=== PATIENT | female | born 1960 | race Caucasian/White ===

== ENCOUNTER 2022-09-26 13:44 | Outpatient (OUT) | payer BC, SELFPAY ==
--- NOTE | 2022-09-26 14:16 | P.CN_ITS ---
Consult Note: HPI Data of Consult Patient: known to practice within the last 3 years Consult date: 09/26/22 Requesting Physician: Gage Ellis MD Primary Care Provider: TIA LOCKWOOD Consult Narrative Reason for consult: Low back pain Narrative: this is a pleasant 62-year-old female who presents for system. She notes persistence of axial low back pain is worsened with standing and ambulation. Her lumbar MRI was reviewed, which is significant for multiple levels of foraminal stenosis, worse at L5-S1, as well as multiple levels of facet arthropathy. She engages in provider directed home exercises, which provided minimal relief at this point. She previously was utilizing Percocet, but has self weaned. She utilizes Tylenol and NSAIDs, which provided relief. She otherwise denies average medication side effects as well as a bar bladder control. cc:: CC: Gage Ellis MD Review of Systems ROS Status of ROS 10 or more systems reviewed and unremarkable except as noted in history and below Exam Constitutional Common normals: no apparent distress, oriented x3 and healthy appearing Respiratory Common normals: normal respiratory effort Effort & inspection: able to speak in complete sentences Back & Pelvis Other: tenderness to palpation throughout the lumbar spine and paraspinal musculature. Pain is elicited with flexion, extension, and lateral rotation of the lumbar spine. Facet loading maneuvers are positive bilaterally. Coordination remains intact. Gait remains nonantalgic. Extremity Common normals: normal to inspection Neuro Common normals: oriented x3, CN's II-XII intact bilaterally and no focal motor deficits Psych Common normals: mental status grossly normal and cooperative Assessment and Plan Assessment and Plan (1) Lumbar stenosis with neurogenic claudication: (2) Lumbar spondylosis: Plan this is a pleasant 62-year-old female who presents for assessment. She has failed physical and medical modalities, as listed above. Her imaging was reviewed, as noted above. Given her symptomatology and imaging findings, it is prudent to attempt diagnostic bilateral L3, L4, L5 medial branch blocks with the intention of proceeding to radiofrequency ablation. She is in agreement with this plan and will call to schedule when she is ready. Medications were review ed, and no changes were made at this time. She has self weaned from the Percocet. She will follow up after the procedure is complete.
== END 2022-09-26 13:45 ==
LOC: PM 11-03 13:45
PROVIDERS: PCP Family Medicine; Visit Provider Anesthesiology
DX: M47.816 Spondylosis without myelopathy or radiculopathy, lumbar region (principal); M48.062 Spinal stenosis, lumbar region with neurogenic claudication
CPT/HCPCS: G0463

== ENCOUNTER 2023-12-28 11:13 | Outpatient (OUT) | payer BC, SELFPAY ==
[2023-12-28 11:33] LABS: Basophils Percent Auto 0.3 % (0.2-2.0); Eosinophils Absolute Auto 0.1 10^3/uL (0.0-0.7); Eosinophils Percent Auto 0.8 % (0.9-7.0); Hematocrit 38.7 % (36.0-48.0); Hemoglobin 12.8 g/dL (12.0-16.0); Immature Granulocytes Abs Auto 0.04 10^3/uL (0.00-0.03); Immature Granulocytes Pct Auto 0.3 % (0.0-0.5); Lymphocytes Absolute Auto 2.9 10^3/uL (1.2-3.8); Lymphocytes Percent Auto 24.6 % (20.5-60.0); Mean Corpuscular HGB Conc 33.1 g/dL (29.9-35.2); Mean Corpuscular Hemoglobin 29.8 pg (26.7-34.0); Monocytes Absolute Auto 0.9 10^3/uL (0.3-0.8); Monocytes Percent Auto 7.5 % (1.7-12.0); Neutrophils Absolute Auto 7.8 10^3/uL (1.4-6.5); Neutrophils Percent Auto 66.5 % (43.0-75.0); Platelet Count 329 10^3/uL (150-450); White Blood Count 11.8 10^3/uL (4.0-11.0)
[2023-12-28 12:06] LABS: Alanine Aminotransferase 26 U/L (14-59); Albumin Globulin Ratio 1.1; Albumin Level 3.9 g/dL (3.4-5.0); Alkaline Phosphatase 66 U/L (46-116); Aspartate Amino Transferase 16 U/L (15-37); BUN Creatinine Ratio 17.9; Bilirubin Total 0.4 mg/dL (0.2-1.0); Calcium 9.5 mg/dL (8.5-10.1); Chloride 101 mmol/L (98-107); Estimated GFR (African America >60 (>=60); Estimated GFR (Non-African Ame >60 (>=60); Globulin 3.6 g/dL; Glucose 118 mg/dL (74-106); Potassium 4.5 mmol/L (3.5-5.1); Sodium 139 mmol/L (136-145); Total Protein 7.5 g/dL (6.4-8.2)
[2023-12-28 12:14] LABS: Anion Gap 15.1; Carbon Dioxide 27.4 mmol/L (21.0-32.0)
== END 2023-12-28 11:14 | disposition home or self-care (01) ==
LOC: LAB 11:13
PROVIDERS: PCP Family Medicine; Visit Provider Internal Medicine Rheumatology
DX: M19.90 Unspecified osteoarthritis, unspecified site (principal); Z51.81 Encounter for therapeutic drug level monitoring
CPT/HCPCS: 36415; 80053; 85025